=== PATIENT | female | born 1975 | race African-American/Black ===

== ENCOUNTER 2025-08-18 13:19 | Outpatient (REF) | payer BC, SELFPAY ==
[2025-08-18 16:07] LABS: Appearance Urine Clear; Glucose Urine UA Negative (Negative); PH 5.5 (5.0-9.0); Specific Gravity - Urine 1.020 (1.005-1.025); UMIC TRIGGER UACC YES
[2025-08-18 16:12] LABS: MANUAL DIFF FLAG NO
[2025-08-18 16:17] LABS: UACC Culture Trigger YES
[2025-08-18 16:17] LABS: Hematocrit 37.6 % (37.0-47.0); Hemoglobin 12.2 g/dl (12.0-16.0); Imm Gran Abs Auto 0.02 X10*3/uL (0.00-0.03); Imm Gran Pct Auto 0.3 % (0.0-0.4); Lymphocytes Absolute Auto 2.5 X10*3/uL (1.2-4.9); Mean Corpuscular HGB Conc 32.4 g/dl (31.0-35.0); Mean Corpuscular Hemoglobin 29.5 pg (27.0-33.0); Mean Corpuscular Volume 90.8 fL (80.0-98.0); NRBC Abs Auto 0.000 X10*3/uL (0.0-0.012); NRBC Pct Auto 0.0 /100WBC (0.0-0.2); Platelet Count 319 X10*3/uL (160-400); Red Blood Count 4.14 X10*6/uL (4.20-5.50); White Blood Count 6.3 X10*3/uL (4.8-10.8)
[2025-08-18 16:58] LABS: Alanine Aminotransferase 63 U/L (0-31); Albumin Level 4.3 g/dL (3.5-5.0); Alkaline Phosphatase 75 U/L (39-117); Anion Gap 10 (12-20); Aspartate Amino Transferase 48 U/L (5-31); Blood Urea Nitrogen 8 mg/dL (9-16); Calcium 9.5 mg/dL (8.4-10.2); Carbon Dioxide 29 mmol/L (22-29); Chloride 106 mmol/L (96-108); Cholesterol 191 mg/dL (<200); Estimated Glomerular Filt Rate > 60; HDL Cholesterol 34 mg/dL (>40); Iron 102 mcg/dL (30-160); Magnesium 1.8 mg/dL (1.6-2.6); Percent Iron Saturation 33 % (15-50); Potassium 3.9 mmol/L (3.3-5.1); Sodium 141 mmol/L (135-145); Total Iron Binding Capacity 310 mcg/dL (228-428); Total Protein 7.7 g/dL (6.5-8.0); Triglycerides 263 mg/dL (<150); Unsaturated Iron Binding 208 ug/dL
[2025-08-18 16:59] LABS: Folate 10.1 ng/mL (> or = 4.0); Vitamin B12 593 pg/mL (200-900)
[2025-08-18 17:07] LABS: Ferritin 37 ng/mL (10-250)
== END 2025-08-18 13:20 | disposition home or self-care (01) ==
LOC: HO.HMGCLDS 13:19
PROVIDERS: PCP Physician Assistant Medical; Visit Provider Physician Assistant Medical
DX: Z00.00 Encounter for general adult medical examination without abnormal findings (principal); Z28.82 Immunization not carried out because of caregiver refusal; Z12.11 Encounter for screening for malignant neoplasm of colon; R53.83 Other fatigue; R63.5 Abnormal weight gain; K13.0 Diseases of lips; D64.9 Anemia, unspecified; N95.1 Menopausal and female climacteric states; B00.1 Herpesviral vesicular dermatitis; Z68.30 Body mass index [BMI] 30.0-30.9, adult
CPT/HCPCS: 36415; 80053; 80061; 80076; 81001; 82248; 82306; 82607; 82728; 82746; 83036; 83540; 83735; 84443; 85025; 86140; 86695; 86696; 87086; 96127

== ENCOUNTER 2025-08-18 13:19 | Outpatient (AMB) | payer BC, SELFPAY ==
--- NOTE | 2025-08-18 13:24 | MHC.PC.OV ---
Vital Signs 08/18/25 13:30 Height 5 ft 4.96 in Weight 181 lb BMI 30.2 BP 135/80 Blood Pressure Location Rt brachial Position Sitting Respiration 20 Pulse 76 Pulse Source Pulse Oximeter Temp 97.7 F Temp Source Temporal Artery Scan Pulse Oximetry (%) 96 Oxygen Delivery Method Room Air Intake Visit Reasons: establish care Accompanied by: Self / Same As Patient Allergies No Known Allergies Allergy (Verified 08/18/25 14:51) Medication List - Last Reconciled 08/18/25 by Zeny Hudson PA-C cholecalciferol (vitamin D3) (Vitamin D3) 25 mcg PO DAILY escitalopram oxalate 20 mg PO DAILY fexofenadine (Yamilex Allergy) 180 mg PO DAILY multivitamin with folic acid 400 mcg (Daily-Patsy (with folic acid)) 1 tab PO DAILY mupirocin 2% 1 appl topical QID valacyclovir (Valtrex) 1,000 mg PO DAILY 7 days Tobacco use date assessed: 08/18/25 Dental Screening Dental Screen Date: 08/18/25 Did you have a dental visit in the last 12 months?: Yes Was dental information given to patient?: Patient has dentist HPI establish care HPI Details The patient is a 50-year-old female presenting for a annual physical exam and evaluation of fatigue and weight gain. The patient reports persistent fatigue despite working at [employer], which involves physical labor such as lifting. She has experienced weight gain and expresses concern about her energy levels. 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 Recently, she developed a lesion on her face after squeezing a pimple, which was initially suspected to be a cold sore but is now considered a possible skin infection. She reports menopausal symptoms, including mood changes and temperature fluctuations. The patient is concerned about her appearance and weight, noting a significant change from her past physique. Preventative care measures discussed include blood work to assess various health parameters, a mammogram referral, and colon cancer screening with oguard. Social History - Employment: Works at [employer], involving physical labor such as lifting - Substance Use: Sober for two and a half years - Family Status: for 26 years [facility] Medical History (Updated 08/18/25 @ 14:55 by Zeny Hudson PA-C) Colon cancer screening Preventative health care Menopausal symptoms Infection of lip HSV infection Weight gain Fatigue Annual physical exam Cold sore Family History Mother Stroke Father Kidney malignancy HTN (hypertension) Social History Housing: Apartment Patient Tobacco Use Status: Current everyday Tobacco user e-Cigarette/Vaping Use: Currently Using service: No Current occupational status: employed Cognitive needs: No Hearing needs: No Vision needs: No Questionnaire PHQ-9 Over the last 2 weeks, how often have you been bothered by any of the following problems? 1. Little interest or pleasure in doing things: not at all 2. Feeling down, depressed, or hopeless: not at all 3. Trouble falling or staying asleep, or sleeping too much: not at all 4. Feeling tired or having little energy: not at all 5. Poor appetite or overeating: not at all 6. Feeling bad about yourself - or that you are a failure or have let yourself or your family down: not at all 7. Trouble concentrating on things, such as reading the newspaper or watching television: not at all 8. Moving or speaking so slowly that other people could have noticed. Or the opposite - being so fidgety or restless that you have been moving around a lot more than usual: not at all 9. Thoughts that you would be better off or of hurting yourself in some way: not at all Total score: 0 Depression Screening Interpretation: Negative Depression Screening Done: Yes 60238 - PHQ-9 Billing: Yes Source: Developed by Drs. Zac Coyle, Chiquita Spaulding, Gumaro Reid and colleagues, with an educational amanda from [employer] Thrive Questionnaire Date Thrive assessed: 08/18/25 I am a: Patient What is your living situation today?: I have a steady place to live Within the past 12 months, did the food you bought not last and you didn't have the money to get more?: Never true Within the past 12 months, did you worry whether your food would run out before you got money to buy more?: Never true Do you have trouble paying for medicines?: No Do you have trouble getting transportation to medical appointments?: No Do you have trouble paying your heating and electricity bill?: No Do you have trouble taking care of your child, family member or friend?: No Do you have trouble with day-to-day activities such as bathing, preparing meals, shopping, managing finances, etc.?: No Are you currently unemployed and looking for a job?: No Are you interested in more education?: No Please select the resources that you would like help with: None THRIVE Score: 0 AUDIT C Alcohol Use Questionnaire (AUDIT-C) 1. How often do you have a drink containing alcohol?: Never Total Score: 0 Score Reviewed/Action Taken: No PAWEL-7 AMB Questionnaire PAWEL-7 Date PAWEL - 7 assessed: 08/18/25 Feeling nervous, anxious, or on edge: 0 = Not at all Not being able to stop or control worryin = Not at all Worrying too much about different things: 0 = Not at all Trouble relaxin = Not at all Being so restless that it is hard to sit still: 0 = Not at all Becoming easily annoyed or irritable: 0 = Not at all Feeling afraid as if something awful might happen: 0 = Not at all Total PAWEL-7 score (0-4 normal; 5-9 mild; 10-14 moderate; 15-21 severe): 0 Source: Developed by Drs. Zac Coyle, Chiquita Spaulding, Gumaro Reid and colleagues, with an educational amanda from [employer] PAWEL-7 Assessment Billing PAWEL-7 Assessment Tool: PAWEL-7 Assessment 55887 Review of Systems Const Details: - General: Reports fatigue and weight gain - Dermatological: Reports a facial lesion initially suspected as a cold sore - Neurological: Denies history of cold sores - Endocrine: Reports menopausal symptoms such as mood changes and temperature fluctuations All systems reviewed & are unremarkable except as noted in HPI and below Physical exam (Primary Care) Vital Signs: Last Vital Signs Temp 97.7 F 08/18/25 13:30 Pulse 76 08/18/25 13:30 Resp 20 08/18/25 13:30 BP 135/80 08/18/25 13:30 Pulse Ox 96 08/18/25 13:30 Oxygen Delivery Method Room Air 08/18/25 13:30 Care Plan Goal for BP management: <140/90 at Goal BMI result Body Mass Index 30.2 BMI Assessment/Plan discussion: High BMI High, discussed plan: lifestyle, weight reduction, dietary, physical activity, alcohol moderation and other Tobacco/Smoking Status: Tobacco use Status Tobacco use date assessed 08/18/25 08/18/25 13:30 Patient Tobacco Use Status Current everyday Tobacco 08/18/25 13:43 e-Cigarette/Vaping Use Currently Using 08/18/25 13:43 PHQ-9: PHQ-9 Score PHQ-9: Total score 0 08/18/25 13:47 Depression Screening Interpretation: Negative Thrive Assessment: Date of Thrive Assessment Date Thrive assessed 08/18/25 08/18/25 13:30 Const Other: Appearance: Alert. Oriented X3. No acute distress. Head: Normal external exam. Normocephalic. Atraumatic. Eyes: Pupils are equal, round, and reactive to light. Extraocular movements intact. Conjunctiva and sclera normal. Eyelids normal. Ears: External auditory canal normal. Tympanic membranes normal. Fluid noted in ears, possibly due to chronic sinus issues. Throat: Pharynx normal. Uvula midline. Moist mucous membranes. To the patient's lips she has a wound to the right lower lip possibly herpes versus impetigo. Neck: Normal inspection. Neck supple. Full range of motion. No adenopathy. Thyroid Normal. No meningeal signs. No neck mass noted. Cardiovascular: Normal heart rate and rhythm. Heart sound normal. No murmurs noted. Pulses normal throughout. Respiratory: No respiratory distress. Painless inspiration. Breath sounds normal. No wheezes/rales/rhonchi noted. Chest nontender. No accessory muscle usage noted or decreased air movement noted. Abdomen: Soft and nontender. Bowel sounds normal in all 4 quadrants. No distention noted. No organomegaly noted. No visible injury noted. Back: No costovertebral angle tenderness. Full range of motion noted. Skin: Skin warm and dry. Normal skin color. Normal skin turgor. No rashes/lesions/lacerations noted. Noted a possible skin infection on the face, treated with topical ointment. Extremities: No lower extremity edema. Extremities exhibit normal range of motion. Extremities nontender. Neuro: Oriented X 3. No motor deficit. No sensory deficit. Reflexes normal. Office Procedures Flu Questionnaire Does the patient have a severe egg allergy?: No Does the patient have severe life threatening allergies?: No Does the patient have a fever or illness today?: No Has the patient ever had Guillain-[place] Syndrome?: No Has the patient ever had any past reaction to a flu shot?: No Immunizations Fluarix [id number] (PF) 45 mcg (15 mcg x 3)/0.5 mL IM syringe Performing Provider: Zeny Hudson PA-C [facility] [place] [facility] Documented (not given) by: Trinity Seals CMA on 08/18/25 13:48 Reason Not Given: Patient Refused Coding Level of Care Code New Pt Level 4 (13670) New Pt Prev Care 40-64y(02910) Diagnoses Annual physical exam Z00.00 Fatigue R53.83 Weight gain R63.5 HSV infection B00.9 Infection of lip K13.0 Menopausal symptoms N95.1 Preventative health care Z00.00 Colon cancer screening Z12.11 Additional Codes PHQ-9 - 77147 - PHQ-9 Billing: Yes ([id number]) PAWEL-7 Assessment Billing - PAWEL-7 Assessment Tool: PAWEL-7 Assessment 34964 ([id number]) Time Spent (min) 50 Assessment & Plan Assessment & Plan (1) Annual physical exam: Code(s): Z00.00 - Encounter for general adult medical examination without abnormal findings Category: Medical (2) Fatigue: Code(s): R53.83 - Other fatigue Category: Medical Plan: The plan includes ordering comprehensive blood work to evaluate potential causes of fatigue, including thyroid function, vitamin levels, and complete blood count. (3) Weight gain: Code(s): R63.5 - Abnormal weight gain Category: Medical Plan: The patient is advised to complete blood work to assess for metabolic or endocrine causes of weight gain, including thyroid function and cholesterol levels. (4) HSV infection: Code(s): B00.9 - Herpesviral infection, unspecified Category: Medical Plan: The patient is prescribed Valtrex for potential HSV-2 management, with instructions for daily use for seven days and three refills provided. (5) Infection of lip: Code(s): K13.0 - Diseases of lips Category: Medical Plan: A topical antibiotic is prescribed to treat the suspected skin infection, and an antiviral is provided as a precautionary measure. (6) Menopausal symptoms: Code(s): N95.1 - Menopausal and female climacteric states Category: Medical Plan: The patient is advised on lifestyle modifications to manage menopausal symptoms, including monitoring mood changes and temperature fluctuations. (7) Preventative health care: Code(s): Z00.00 - Encounter for general adult medical examination without abnormal findings Category: Medical Plan: Preventative measures include blood work, mammogram referral, and colon cancer screening with Cologuard. (8) Colon cancer screening: Code(s): Z12.11 - Encounter for screening for malignant neoplasm of colon Category: Medical Plan: Preventative measures include blood work, mammogram referral, and colon cancer screening with Cologuard. Plan Plan Patient was informed and verbally consented to the use of an ambient scribe for clinic note documentation during this visit. 1. Fatigue The plan includes ordering comprehensive blood work to evaluate potential causes of fatigue, including thyroid function, vitamin levels, and complete blood count. 2. Weight Gain The patient is advised to complete blood work to assess for metabolic or endocrine causes of weight gain, including thyroid function and cholesterol levels. 3. Possible Skin Infection A topical antibiotic is prescribed to treat the suspected skin infection, and an antiviral is provided as a precautionary measure. 4. Herpes Simplex Virus Type 2 (Hsv-2) The patient is prescribed Valtrex for potential HSV-2 management, with instructions for daily use for seven days and three refills provided. 5. Menopausal Symptoms The patient is advised on lifestyle modifications to manage menopausal symptoms, including monitoring mood changes and temperature fluctuations. 6. Preventative Care Preventative measures include blood work, mammogram referral, and colon cancer screening with Cologuard. During the visit, I discussed the importance of completing the recommended blood work to evaluate the patient's fatigue and weight gain. We also talked about the potential skin infection and the use of a topical antibiotic and antiviral medication as a precaution. I explained the management plan for HSV-2, including the prescription of Valtrex and the provision of refills. Preventative care measures, such as a mammogram referral and colon cancer screening with Cologuard, were also discussed. Orders: Orders C Reactive Protein Today Z00.00 - Encounter for general adult medical examination without abnormal findings Complete Blood Count Auto Diff Today Z00.00 - Encounter for general adult medical examination without abnormal findings Hemoglobin A1c Today Z00.00 - Encounter for general adult medical examination without abnormal findings Vitamin D 25-OH Total Today Z00.00 - Encounter for general adult medical examination without abnormal findings UA CC w/rflx Micro + Cult Today Z00.00 - Encounter for general adult medical examination without abnormal findings Ferritin Today D64.9 - Anemia, unspecified Influenza [id number] Immunization Today Z23 - Encounter for immunization Comprehensive [place]. Panel Fast Today Z00.00 - Encounter for general adult medical examination without abnormal findings Lipid Panel Today Z00.00 - Encounter for general adult medical examination without abnormal findings Liver Panel Today Z00.00 - Encounter for general adult medical examination without abnormal findings Magnesium Today Z00.00 - Encounter for general adult medical examination without abnormal findings Vitamin B12 and Folate Today Z00.00 - Encounter for general adult medical examination without abnormal findings TSH reflex Free T4 Today Z00.00 - Encounter for general adult medical examination without abnormal findings IRON PROFILE Today D64.9 - Anemia, unspecified Herpes Simplex Virus Ab IgG Today B00.1 - Herpesviral vesicular dermatitis MM screening mammo BI Today Z12.31 - Encounter for screening mammogram for malignant neoplasm of breast Referrals Cologuard Test Z12.11 - Encounter for screening for malignant neoplasm of colon, Z12.12 - Encounter for screening for malignant neoplasm of rectum Medications: New mupirocin 2% 1 appl topical QID 22 grams 3RF fexofenadine (Yamilex Allergy) 180 mg PO DAILY 90 tabs 3RF multivitamin with folic acid 400 mcg (Daily-Patsy (with folic acid)) 1 tab PO DAILY 90 tabs 3RF valacyclovir (Valtrex) 1,000 mg PO DAILY 7 tabs 3RF 7 days cholecalciferol (vitamin D3) (Vitamin D3) 25 mcg PO DAILY 90 caps 3RF escitalopram oxalate 20 mg PO DAILY 90 tabs 3RF Patient Instructions: - Complete the blood work as soon as possible, ensuring to fast for 10-12 hours prior. - Apply the prescribed topical antibiotic to the facial lesion as directed. - Take Valtrex once daily for seven days, with three refills available if needed. - Monitor for any changes in menopausal symptoms and report significant changes. - Schedule and complete the mammogram and Cologuard screening as referred.
[2025-08-18 13:30] VITALS: BP 135/80; PULSE 76; RESP 20; TEMP 36.5; O2SAT 96; BMI 30.2
--- OUTSIDE RECORDS SUMMARY | 2025-08-18 14:31 | XMS_ITS | Clinical Summary ---
Author Organization [facility] Address [address] [place] [address] Care Team Providers Care Consumer Affairs Manager Name Role Phone Akosua Palomo HERMINIO Primary Care Provider [phone] Source Comments PLEASE NOTE, if this patient is a minor, it may be UNLAWFUL to discuss sensitive information that is contained in these records (such as FAMILY PLANNING, MENTAL HEALTH or SUBSTANCE ABUSE) with the minor patient's parent or other person without the patient's specific authorization.[facility] Allergies No known active allergies Medications calcium carbonate-vitami n D3 500 mg-10 mcg (400 unit) tabletIndication s:Vitamin D deficiency Take 1 Tablet by mouth 3 (three) times daily with meals 2 Active buPROPion HCL (WELLBUTRIN XL) 150 mg 24 hr tabletIndication s:Major depressive disorder in partial remission, unspecified whether recurrent,Tobacc o use disorder Take 1 Tablet by mouth every morning 90 Tablet 2 Active escitalopram oxalate (LEXAPRO) 20 mg tabletIndication s:Major depressive disorder in partial remission, unspecified whether recurrent Take 1 Tablet by mouth once daily 90 Tablet 2 Active naltrexone (DEPADE) 50 mg tabletIndication s:alcohol use disorder Take 1 Tablet by mouth once daily Indications: alcoholism 90 Tablet 2 Active traZODone (DESYREL) 100 mg tabletIndication s:insomnia associated with depression Take 1 Tablet by mouth nightly at bedtime Indications: insomnia associated with depression 90 Tablet 2 Active hydrOXYzine pamoate (VISTARIL) 25 mg capsuleIndicatio ns:Anxiety,PTSD (post-traumatic stress disorder) Take 1 Capsule by mouth 2 (two) times daily 180 Capsule 2 Active cholecalciferol, vitamin D3, (VITAMIN D3) 1,250 mcg (50,000 unit) capsuleIndicatio ns:Vitamin D deficiency Take 1 Capsule by mouth once a week 12 Capsule 2 Active Active Problems Problem Noted Date Diagnosed Date Skin lesion 04/26/2022 Vitamin D deficiency 04/26/2022 Mild episode of recurrent major depressive disor amrik 04/17/2022 Financial difficulties 12/28/2021 Suicide risk 12/14/2021 Severe episode of recurrent major depressive disorder, without psychotic features 12/14/2021 Moderate episode of recurrent major depressive d isorder 12/14/2021 Generalized anxiety disorder 12/14/2021 Alcohol use disorder, severe, dependence 022 Marijuana use 12/14/2021 Major depressive disorder in partial remission 0 11/20/2021 Anxiety 11/20/2021 History of drug abuse 11/20/2021 Post traumatic stress disorder 11/20/2021 Tobacco abuse 03/11/2015 History of abnormal cervical Pap smear 5 Resolved Problems Problem Noted Date Diagnosed Date Resolved Date Periapical abscess 03/11/2015 2 Immunizations Immunization Administration Dates Next Due Moderna COVID-19 Vaccine, re d cap blue label, 12+ Primary Series 12/28/2021 Family History Medical History Relation Name Comments Hypertension Father Diabetes Maternal Aunt Diabetes Maternal Grandfather Stroke Mother Bipolar disorder Other sister Diabetes Paternal Grandmother Heart Problems Sister Heart attack Sister Mental illness Sister bipoplar diso rder Alcohol/Drug Abuse Son Relation Name Status Comments Father Alive Heart surgery 2 020. Degenerative bone disease. Maternal Aunt Maternal Grandfather Mother Alive Other sister Other bipolar disorde r Paternal Aunt Alive Paternal Grandmother Sister (Age 38) heart kay ck Son Alive Social History Tobacco Use Types Packs/Day Years Used Date Smoking Tobacco: Every Day Cigarettes 0.3 33.4 Started: 03/11/1992 Smokeless Tobacco: Never Tobacco Cessation:Ready to Q uit: Yes; Counseling Given: Yes Comments:10/02/2021: States she has cut down on smokng. Wants to quit but is not ready to quit at this time. Alcohol Use Standard Drinks/Week Comments Not Currently 48 (1 standard drink = 0.6 oz pu re alcohol) Social Connections Answer Date Recorded Connectedness 0 07/06/2022 Financial Resource Strain Answer Date R ecorded Financial Resource Strain 0 2021 Stress Answer Date Recorded Stress 0 07/06/2022 Physical Activity Answer Date Recorded Physical Activity 0 07/06/2022 Food Insecurity Answer Date Recorded Food 0 07/06/2022 Transportation Needs Answer Date Record ed Transportation 0 07/06/2022 Housing Stability Answer Date Recorded Housing 0 07/06/2022 Safety and Environment Answer Date Murtaza rded Safety 0 07/06/2022 Utilities Answer Date Recorded Utilities 0 07/06/2022 Employment Answer Date Recorded Stress 0 07/06/2022 Comments No Sex and Gender Information Value Date Recorded Sex Assigned at Female 10/02/2021 10:29 AM PST Legal Sex Female 8:21 AM PDT Gender Identity Female 10/02/2021 10:29 AM PST Sexual Orientation Straight 10/02/2021 10 :29 AM PST Occupation Industry Job Start Date Job End Date unemployed Not on file Not on file Not on file Last Filed Vital Signs Vital Sign Reading Time Taken Comments Blood Pressure 113/71 05/07/2022 11:25 AM EDT Pulse 85 05/07/2022 11:25 AM EDT Temperature 37.4 C (99.4 F) 05/07/2022 11:25 AM EDT Respiratory Rate 22 05/07/2022 11:2 5 AM EDT Oxygen Saturation 100% 05/07/2022 11: 25 AM EDT Inhaled Oxygen Concentration - - Weight 67.9 kg (149 lb 11.2 oz) 022 11:25 AM EDT Height 162.6 cm (5' 4 ) 05/07/2022 11:2 5 AM EDT Body Mass Index 25.7 05/07/2022 11:25 AM EDT Plan of Treatment Health Maintenance Due Date Last Done Comments HPV Screening 1977 Pap + HPV 1977 Relationship Safety Screening/Counseling 1992 Imm-DTaP/Tdap/Td (1 - Tdap) 1996 Imm-Hepatitis A (1 of 2 - Ri sk 2-dose series) 1996 Imm-Hepatitis B (1 of 3 - 19 + 3-dose series) 1996 Imm-Pneumococcal (1 of 2 - PCV) 1996 Cervical Cancer Screening 1998 Pap Smear 1998 Breast Cancer Screening (Mammogram) 2017 CT Colonography 2022 Colonoscopy 2022 Colorectal Cancer Screening 2022 FIT/gFOBT 2022 Fecal DNA 2022 Flexible Sigmoidoscopy 2022 Depression Monitoring 08/07/2022 05/07/2022 , 04/26/2022, 04/17/2022, Additional history exists Syphilis Screening 01/25/2023 01/25/2022, 10/02/2021 Tobacco Screening 02/23/2023 02/23/2022, , 12/28/2021 Tobacco Cessation Counseling (#1) 04/26/2023 02/23/2022, 01/25/2022, 12/28/2021 Anxiety Screening 05/07/2023 05/07/2022 Hypertension Screening (#1) 05/07/2023 LTBI Screening (#1) 05/07/2023 05/07/2022 Diabetes Screening 10/09/2024 10/09/2021, 10/09/2021 Alcohol and Drug Screen 11/18/2024 04/26/20, 10/02/2021, 10/02/2021 Plz-ETAPP-87 ( season) 2025 12/28/2021, 07/11/2021, 06/13/2021 Imm-Influenza (#1) 2025 Lipid Screening 10/09/2026 10/09/2021 HIV Screening Completed 10/02/2021 Hepatitis C Screening Completed 10/09/2021 Cervical Ablation/Cold-Knife Conization Discontinued Cervical Cryotherapy Discontinued Colposcopy Discontinued Endometrial Biopsy Discontinued Excision/Leep Discontinued HPV Genotyping Discontinued Vaginal Pap Discontinued Vulvoscopy Discontinued Procedures Procedure Name Priority Date/Time Associated Diagnosis Comments QUANTIFERON-TB GOLD PLUS Routine 05/07/2022 11:56 AM EDT Alcohol use disorder, severe, dependence (HCC-CMS) RPR W/RFLX TITER+FTA+CONF Routine 01/25/2022 2:10 PM EST Routine screening for STI (sexually transmitted infection) HEPATITIS C AB W/RFLX HCV RNA, QT, RT PCR Routine 10/09/2021 11:27 AM EST Screening for endocrine, metabolic and immunity disorder HEMOGLOBIN GLYCOSYLATED A1C Routine 10/09/2021 11:27 AM EST FH: type 2 diabetes LIPID PANEL Routine 10/09/2021 11:27 AM EST Screening for endocrine, metabolic and immunity disorder HIV 1/2 AG & AB W/RFLX (4TH GEN) Routine 10/02/2021 2:04 PM EST Screening examination for STD (sexually transmitted disease) from Last 3 Months or Most Recently Relevant to Health Maintenance Results * QUANTIFERON-TB GOLD PLUS (05/07/2022 11:56 AM EDT) [facility] QUANTIFERON NEGATIVE NEGATIVE [facility] Comment: Negative test result. M. tuberculosis complex infection unlikely. NIL 0.05 IU/mL [facility] [employer] MITOGEN-NIL >10.00 IU/mL [employer] TB1-NIL <0.00 IU/mL [facility] [employer] TB2-NIL 0.01 IU/mL [facility] Comment: The Nil tube value reflects the background interferon gamma immune response of the patient's blood sample. This value has been subtracted from the patient's displayed TB and Mitogen results. Lower than expected results with the Mitogen tube prevent false-negative Quantiferon readings by detecting a patient with a potential immune suppressive condition and/or suboptimal pre-analytical specimen handling. The TB1 Antigen tube is coated with the M. tuberculosis-specific antigens designed to elicit responses from TB antigen primed CD4+ helper T-lymphocytes. The TB2 Antigen tube is coated with the M. tuberculosis-specific antigens designed to elicit responses from TB antigen primed CD4+ helper and CD8+ cytotoxic T-lymphocytes. For additional information, please refer to https://education.Vysr/faq/FHP136 (This link is being provided for informational/ educational purposes only.) Blood Blood / Unknown 05/07/2022 1 1:56 AM EDT 05/07/2022 11:00 PM EDT Mookie Strong MD LAB - BLOOD DRAW Final Result Performing Organization Address City/[facility]/ZIP Co de Phone Number [facility] [address], [address] [place] [address], [facility] [address] [place] [address] * RPR (DX) W/REFL TITER AND CONFIRMATORY TESTING ([id number]) (01/25/2022 2:10 PM EST) RPR (DX) W/REFL TITER AND CONFIRMATORY TESTING NON-REACT TAE NON-REACT TAE [facility] Blood Blood / Unknown 01/25/2022 2 :10 PM EST 01/25/2022 10:51 PM EST Ariela Vides PMHNP LAB - BLOOD DRAW Final Result Performing Organization Address [facility]/ZIP Co de Phone Number [facility] [address] [place] [address] [facility] [address] [place] [address] * HEPATITIS C AB W/RFLX HCV RNA, QT, RT PCR ([facility] [id number]) (10/09/2021 11:27 AM EST) HEPATITIS C ANTIBODY NON-REACTI VE NON-REACT TAE [facility] SIGNAL TO CUT-OFF 0.01 <1.00 [facility] Comment: HCV antibody was non-reactive. There is no laboratory evidence of HCV infection. In most cases, no further action is required. However, if recent HCV exposure is suspected, a test for HCV RNA (test code 48927) is suggested. For additional information please refer to http://education.Vysr/faq/WUX62p2 (This link is being provided for informational/ educational purposes only.) Blood Blood / Unknown 10/09/2021 1 1:27 AM EST 10/09/2021 10:55 PM EST Akosua DURHAM [facility] - BLOOD DRAW Final Resul t Performing Organization Address [facility] de Phone Number [employer] [address] [address] [facility] [address] * HEMOGLOBIN A1c ([id number]) (10/09/2021 11:27 AM EST) HEMOGLOBIN A1C 4.8 <5.7 % of total Hgb [facility] Comment: For the purpose of screening for the presence of diabetes: <5.7% Consistent with the absence of diabetes 5.7-6.4% Consistent with increased risk for diabetes (prediabetes) > or =6.5% Consistent with diabetes This assay result is consistent with a decreased risk of diabetes. Currently, no consensus exists regarding use of hemoglobin A1c for diagnosis of diabetes in children. According to [place] Diabetes [employer] (ADA) guidelines, hemoglobin A1c <7.0% represents optimal control in non- diabetic patients. Different metrics may apply to specific patient populations. Standards of Medical Care in Diabetes(ADA). Blood Blood / Unknown 10/09/2021 1 1:27 AM EST 10/09/2021 10:55 PM EST Akosua [facility] - BLOOD DRAW Final Resul t Performing Organization Address [facility] de Phone Number [employer] [address] [address] [facility] [address] * (ABNORMAL) LIPID PANEL (10/09/2021 11:27 AM EST) CHOLESTEROL, TOTAL 135 <200 mg/dL [facility] HDL CHOLESTEROL 43(L) > OR = 50 mg/dL [facility] TRIGLYCERIDES 107 <150 mg/dL [facility] LDL-CHOLESTEROL 73 99 mg/dL (calc) [facility] Comment: Reference range: <100 Desirable range <100 mg/dL for primary prevention; <70 mg/dL for patients with CHD or diabetic patients with > or = 2 CHD risk factors. LDL-C is now calculated using the [place] calculation, which is a validated novel method providing better accuracy than the Friedewald equation in the estimation of LDL-C. Param ANGEL et al. JATIN. 2013;310(24): 3321-8989 (http://education.[employer]/faq/PKI217) CHOL/HDLC RATIO 3.1 <5.0 (calc) [facility] NON-HDL CHOLESTEROL 92 <130 mg/dL (calc) [facility] Comment: For patients with diabetes plus 1 major ASCVD risk factor, treating to a non-HDL-C goal of <100 mg/dL (LDL-C of <70 mg/dL) is considered a therapeutic option. Blood Blood / Unknown 10/09/2021 1 1:27 AM EST 10/09/2021 10:55 PM EST us Akosua Palomo [facility] - BLOOD DRAW Final Resul t [employer] [facility] [address] [place] [address] [facility] [address] [place] [address] * HIV 1/2 AG & AB W/RFLX (4TH GEN) ([facility] [id number]) (10/02/2021 2:04 PM EST) HIV AG/AB, 4TH GEN NON-REACT TAE NON-REACT TAE [facility] Comment: HIV-1 antigen and HIV-1/HIV-2 antibodies were not detected. There is no laboratory evidence of HIV infection. PLEASE NOTE: This information has been disclosed to you from records whose confidentiality may be protected by state law. If your state requires such protection, then the state law prohibits you from making any further disclosure of the information without the specific written consent of the person to whom it pertains, or as otherwise permitted by law. A general authorization for the release of medical or other information is NOT sufficient for this purpose. For additional information please refer to http://education.[employer].Tellja/faq/UOG965 (This link is being provided for informational/ educational purposes only.) The performance of this assay has not been clinically validated in patients less than 2 years old. Blood Blood / Unknown 10/02/2021 2 :04 PM EST 10/02/2021 11:57 PM EST us Akosua [facility] - BLOOD DRAW Final Resul t [employer] [facility] [address] [place] [address] [facility] [address] [place] [address] from Last 3 Months or Most Recently Relevant to Health Maintenance Insurance [facility] [employer] Care Teams Consumer Affairs Manager Relationship Specialty Start Date End Date Akosua Palomo FNP [address] [place] [address] [phone] PCP - General Family Medicine, RECHECKER 03/11/15
--- OUTSIDE RECORDS SUMMARY | 2025-08-18 14:31 | XMS_ITS | Clinical Summary ---
Author Organization [facility] Address [address] [place] [address] Phone Care Team Providers Care Community Administrator Name Role Phone Physician, Pcp Unknown Primary Care Provider Eva vailable Allergies No known active allergies Medications No known medications Encounters Date Type Department Care Team Description 07/04/2025 11:57 AM EDT - 07/04/2025 5:36 PM EDT Emergency [facility] Emergency [address] [place] [phone] Cam Saleem MD Uterine leiomyoma, unspecified location (Primary Dx); DUB (dysfunctional uterine bleeding); Other fatigue Discharge Disposition: Home or Self Care from Last 3 Months Surgical History Surgery Date Site/Laterality Comments TUBAL LIGATION Family History Medical History Relation Name Comments Coronary artery disease Sister Heart attack Sister Relation Name Status Comments Sister Social History Tobacco Use Types Packs/Day Years Used Date Smoking Tobacco: Every Day Cigarettes Smokeless Tobacco: Current Tobacco Cessation:Ready to Q uit: Not Asked; Counseling Given: Not Answered Comments Unknown Sex and Gender Information Value Date Recorded Sex Assigned at Not on file Legal Sex Female 8:55 PM EST Gender Identity Not on file Sexual Orientation Not on file Obstetrics History Last Filed Vital Signs Vital Sign Reading Time Taken Comments Blood Pressure 96/65 07/04/2025 3:08 PM EDT Pulse 80 07/04/2025 3:08 PM EDT Temperature 37.2 C (99 F) 07/04/2025 3:08 PM EDT Respiratory Rate 18 07/04/2025 3:08 PM EDT Oxygen Saturation 100% 07/04/2025 3:08 PM EDT Inhaled Oxygen Concentration - - Weight 82.6 kg (182 lb) 07/04/2025 11:00 AM EDT Height 162.6 cm (5' 4 ) 07/04/2025 11:00 AM EDT Body Mass Index 31.24 07/04/2025 11:00 AM EDT Plan of Treatment Upcoming Encounters Date Type Department Care Team (Latest Contact Info) Description 09/30/2025 11:30 AM EST Pre-Admission Testing [facility] Pre-Admission Testing [address] [place] [phone] 10/05/2025 7:30 AM EST Hospital Encounter [facility] Main OR [address] [place] [phone] Tyron Blum MD [address] [phone] 10/05/2025 7:30 AM EST - 10/05/2025 8:45 AM EST Surgery [facility] Main OR [address] [place] [phone] Tyron Blum MD [address] [phone] FRACTIONAL D+C PAP SMEAR HYSTEROSCOPY [96553 (CPT )] Scheduled Procedures Name Priority Associated Diagnoses Date/Ti me HYSTEROSCOPY Irregular menstruation, unspecified 10/05/2025 7:30 AM EST Health Maintenance Due Date Last Done Comments Colorectal Cancer Screening: Colonoscopy 1975 DTaP,Tdap,and Td Vaccines (1 - Tdap) 1996 Hepatitis A Vaccines (1 of 2 - Risk 2-dose series) 1996 Hepatitis B Vaccines (1 of 3 - 19+ 3-dose series) 1996 Pneumococcal Vaccine: Pediatrics (0 to 5 Years) and At-Risk Patients (6 to 49 Years) (1 of 2 - PCV) 1996 Cervical Cancer Screening: P ap Smear 1998 HIV Screening 12/13/2023 Social Influencers of Health Screening 12/13/2023 Depression Screening 11/18/2024 Breast Cancer Screening 04/30/2025 04/30/2023 COVID-19 Vaccine (4 - 2024-2 6 season) 2025 12/14/2022, 12/28/2021, 05/11/2021 Influenza Vaccine (#1) 2025 Cholesterol Screening (Lipid Panel) 10/09/2026 10/09/2021, 10/09/2021 RSV Immunization Adult Patients (1 - 1-dose 75+ series) 2052 Hepatitis C Screening Completed 10/09/2021 HIB Vaccines Aged Out No longer eligi ble based on patient's age to complete this topic HPV Vaccines Aged Out No longer eligi ble based on patient's age to complete this topic IPV Vaccines Aged Out No longer eligi ble based on patient's age to complete this topic MMR Vaccines Aged Out No longer eligi ble based on patient's age to complete this topic Meningococcal ACWY Vaccine Aged Out N o longer eligible based on patient's age to complete this topic Meningococcal B Vaccine Aged Out No l onger eligible based on patient's age to complete this topic RSV Immunization Patients Under 20 months Aged Out No longer eligible b ased on patient's age to complete this topic Varicella Vaccines Aged Out No longer eligible based on patient's age to complete this topic Goals Goal Patient Goal Type Associated Problems Recent Progress Patient-Stated? Author Autogenerat ed Goal Care Plan Autogenerated Problem No Lavinia Livingston Procedures Procedure Name Priority Date/Time Associated Diagnosis Comments ECG ANNOTATED 07/05/2025 RHYTHM ECG, REPORT Routine 07/04/2025 4: 48 PM EDT TROPONIN I HIGH SENSITIVITY STAT 07/04/2025 4:16 PM EDT ECG 12-LEAD STAT 07/04/2025 4:15 PM EDT US PELVIS NON OB COMPLETE W TRANSVAGINAL STAT 07/04/2025 3:02 PM EDT POC , URINE DIAGNOSTIC STAT 07/04/2025 12:47 PM EDT PROTHROMBIN TIME WITH INR STAT 07/04/2025 12:46 PM EDT CBC WITH AUTO DIFFERENTIAL STAT 07/04/2025 12:46 PM EDT TYPE AND SCREEN STAT 07/04/2025 12:46 PM EDT BASIC METABOLIC PANEL STAT 07/04/2025 12:46 PM EDT CBC AND DIFFERENTIAL STAT 07/04/2025 12:46 PM EDT BURTON SCREENING DIGITAL Routine 04/30/2023 5:34 PM EDT Encounter for screening mammogram for malignant neoplasm of breast from Last 3 Months or Most Recently Relevant to Health Maintenance Results * ECG-Annotated (07/05/2025) us Provider Onbase ECG ORDERABLES Final Result * RHYTHM ECG, REPORT (07/04/2025 4:48 PM EDT) Narrative Cam Saleem MD - 07/04/2025 4:48 PM EDT Cam Saleem MD 07/05/2025 3:43 PM ECG Rhythm Interpretation and Report Date/Time: 07/04/2025 4:48 PM Performed by: Cam Saleem MD Authorized by: Cam Saleem MD ECG interpreted by ED Physician in the absence of a hogshead packer: yes Interpretation: Interpretation: normal Details: Sinus rhythm with ventricular rate of 75 bpm. Normal SC, QRS, QTc, axis. No acute ischemic changes. us Cam Saleem MD ECG ORDERABLES Final Result * Troponin I high sensitivity (07/04/2025 4:16 PM EDT) High Sensitivity Troponin I <3 <=54 ng/L LAB CHEMISTRY METHOD 07/04/2025 5:17 PM EDT [facility] Blood Venous blood specimen / Unknown Venipuncture / Unknown 07/04/2025 4:16 PM EDT 07/04/2025 4:44 PM EDT Narrative [facility] - 07/04/2025 5:17 PM EDT High levels of biotin in samples may falsely decrease hsTroponin values. Use caution when interpreting hsTroponin results in patients taking biotin who exhibit renal impairment (eGFR <60) or in patients taking more than 20 mg/day of biotin. Cam Saleem MD LAB BLOOD ORDERABLES Final Res ult Performing Organization Address City/[facility]/ZIP Co de Phone Number [facility] [address] [place] [address], [place] [phone] * ECG 12 lead (07/04/2025 4:15 PM EDT) Ventricular Rate ECG 75 BPM GEMUSE Atrial Rate 75 BPM GEMUSE P-R Interval 156 ms GEMUSE QRS Duration 96 ms GEMUSE Q-T Interval 404 ms GEMUSE QTc 451 ms GEMUSE P Wave [place] 17 degrees GEMUSE R [place] 18 degrees GEMUSE T [place] 36 degrees GEMUSE ECG Interpretation Normal sinus rhythm Normal ECG When compared with ECG of 04-JUL-2025 16:15, (unconfirmed) No significant change was found Confirmed by RADAMES PECK ([id number]) on 07/04/2025 6:25:11 PM GEMUSE 07/04/2025 4:15 PM EDT 07/04/2025 6:25 PM EDT Cam Saleem MD ECG ORDERABLES Final Result Performing Organization Address [facility] Co de Phone Number GEMUSE * US Pelvis Non OB Complete w Transvaginal (07/04/2025 3:02 PM EDT) Anatomical Region Laterality Modality Body, Pelvis Ultrasound 07/04/2025 3:06 PM EDT Impressions 07/04/2025 3:09 PM EDT Impression: 1. Mildly enlarged, myomatous uterus. 2. 4 mm endometrial thickness, within the range of normal. 3. Normal right ovary. 4. Left ovary not identified. Telerad MARTI ([id number]) -------- FINAL REPORT -------- Dictated By: Leti Tolliver Dictated Date: 07/04/2025 15:06 ET Assigned Physician: Leti Tolliver Reviewed and Electronically Signed By: Leti Tolliver Signed Date: 07/04/2025 15:09 ET Workstation ID: [id number] Transcribed By: Self Edit Transcribed Date: 07/04/2025 15:06 ET Narrative 07/04/2025 3:09 PM EDT History: 50-year-old multiparous female, LMP 06/25/25, with heavy vaginal bleeding for 9 days. Tubal ligation 21 years ago. Comparison: No comparison imaging at this institution. Findings: Transvesical imaging of the pelvis is supplemented with transvaginal imaging for better detail of the uterus and adnexa. The uterus is mildly enlarged, measuring 9.2 cm in length by 5.1 cm in depth by 7.6 cm in width. The endometrial echo complex measures 4 mm in thickness double layer. The myometrium is heterogeneous, with at least 2 round, solid masses identified, one posteriorly measuring 2.1 x 2.2 x 2.5 cm and another anteriorly measuring 1.8 x 1.9 x 1.7 cm, suggesting leiomyomas. Nabothian cysts are noted in the cervix. There is no free fluid in the cul-de-sac. The right ovary measures 3.6 x 1.6 x 1.4 cm, normal in appearance, with normal vascular flow by Doppler analysis. The left ovary is not seen. There are graph no adnexal masses are identified. Procedure Note Leti Tolliver MD - 07/04/2025 History: 50-year-old multiparous female, LMP 06/25/25, with heavy vaginalbleeding for 9 days. Tubal ligation 21 years ago. Comparison: No comparison imaging at this institution. Findings: Transvesical imaging of the pelvis is supplemented with transvaginalimaging for better detail of the uterus and adnexa. The uterus is mildly enlarged, measuring 9.2 cm in length by 5.1 cm indepth by 7.6 cm in width. The endometrial echo complex measures 4 mm inthickness double layer. The myometrium is heterogeneous, with at least 2round, solid masses identified, one posteriorly measuring 2.1 x 2.2 x 2.5cm and another anteriorly measuring 1.8 x 1.9 x 1.7 cm, suggestingleiomyomas. Nabothian cysts are noted in the cervix. There is no free fluid in the cul-de-sac. The right ovary measures 3.6 x 1.6 x 1.4 cm, normal in appearance, withnormal vascular flow by Doppler analysis. The left ovary is not seen.There are graph no adnexal masses are identified. IMPRESSION: Impression: 1. Mildly enlarged, myomatous uterus. 2. 4 mm endometrial thickness, within the range of normal. 3. Normal right ovary. 4. Left ovary not identified. Telelester KIDD ([id number]) -------- FINAL REPORT -------- Dictated By: Leti Tolliver Dictated Date: 07/04/2025 15:06 ET Assigned Physician: Leti Tolliver Reviewed and Electronically Signed By: Leti Tolliver Signed Date: 07/04/2025 15:09 ET Workstation ID: [id number] Transcribed By: Self Edit Transcribed Date: 07/04/2025 15:06 ET Cam Saleem MD IMG US PROCEDURES Final Result * POC , urine manually resulted (07/04/2025 12:47 PM EDT) HCG, Ur POC Negative Negative POC hCG Int QC Pass? Yes Yes Urine Urine specimen obtained by clean catch procedure / Unknown 07/04/2025 12:47 PM EDT Annalee KIDD POINT OF CARE TEST ENTER/EDIT ORDERABLES Final Result * (ABNORMAL) CBC auto differential (07/04/2025 12:46 PM EDT) WBC 6.4 4.8 - 10.8 K/[facility] HEMETOLOGY METHOD 07/04/2025 1:46 PM EDT [facility] RBC 3.90 3.80 - 4.80 M/[facility] LAB HEMETOLOGY METHOD 07/04/2025 1:46 PM EDT [facility] Hemoglobin 11.4(L) 11.5 - 16.0 g/dL LAB HEMETOLOGY METHOD 07/04/2025 1:[address] [facility] Hematocrit 35.9 35.0 - 47.0 % LAB HEMETOLOGY METHOD 07/04/2025 1:[address] [facility] MCV 91.6 79.0 - 98.0 FL LAB HEMETOLOGY METHOD 07/04/2025 1:[address] [facility] MCH 29.1 27.0 - 32.0 pcg LAB HEMETOLOGY METHOD 07/04/2025 1:[address] [facility] MCHC 31.8(L) 32.0 - 37.0 g/dL LAB HEMETOLOGY METHOD 07/04/2025 1:[address] [facility] RDW 13.2 11.0 - 15.0 % LAB HEMETOLOGY METHOD 07/04/2025 1:[address] [facility] Platelets 266 130 - 400 K/mcL LAB HEMETOLOGY METHOD 07/04/2025 1:[address] [facility] MPV 11.0 7.0 - 11.0 FL LAB HEMETOLOGY METHOD 07/04/2025 1:[address] [facility] NRBC 0.0 <1.0 % LAB HEMETOLOGY METHOD 07/04/2025 1:[address] [facility] NRBC Absolute 0.00 <0.10 K/mcL LAB HEMETOLOGY METHOD 07/04/2025 1:[address] [facility] Neutrophils Relative 54.4 % LAB HEMETOLOGY METHOD 07/04/2025 1:[address] [facility] Lymphocytes Relative 34.3 % LAB HEMETOLOGY METHOD 07/04/2025 1:[address] [facility] Monocytes Relative 8.1 % LAB HEMETOLOGY METHOD 07/04/2025 1:46 PM EDT [facility] Eosinophils Relative 2.3 % LAB HEMETOLOGY METHOD 07/04/2025 1:46 PM EDT [facility] Basophils Relative 0.6 % LAB HEMETOLOGY METHOD 07/04/2025 1:46 PM EDT [facility] Immature Granulocytes Relative 0.3 % LAB HEMETOLOGY METHOD 07/04/2025 1:46 PM EDT [facility] Neutrophils Absolute 3.48 1.50 - 7.00 K/mcL LAB HEMETOLOGY METHOD 07/04/2025 1:46 PM EDT [facility] Lymphocytes Absolute 2.20 1.00 - 5.00 K/mcL LAB HEMETOLOGY METHOD 07/04/2025 1:46 PM EDT [facility] Monocytes Absolute 0.52 0.20 - 1.00 K/mcL LAB HEMETOLOGY METHOD 07/04/2025 1:46 PM EDT [facility] Eosinophils Absolute 0.15 0.00 - 0.50 K/mcL LAB HEMETOLOGY METHOD 07/04/2025 1:46 PM EDT [facility] Basophils Absolute 0.04 0.00 - 0.20 K/mcL LAB HEMETOLOGY METHOD 07/04/2025 1:46 PM EDT [facility] Immature Granulocytes Absolute 0.02 0.00 - 0.03 K/mcL LAB HEMETOLOGY METHOD 07/04/2025 1:46 PM EDT [facility] Blood Venous blood specimen / Unknown Venipuncture / Unknown 07/04/2025 12:46 PM EDT 07/04/2025 1:40 PM EDT us Annalee KIDD LAB BLOOD ORDERABLES Final Re sult [facility] [address] [place] [address], [place] [phone] * Protime-INR (07/04/2025 12:46 PM EDT) [facility] Protime 12.2 10.6 - 13.9 sec LAB COAGULATION METHOD 07/04/2025 1:52 PM EDT [facility] INR 1.0 LAB COAGULATION METHOD 07/04/2025 1:52 PM EDT [facility] Blood Venous blood specimen / Unknown Venipuncture / Unknown 07/04/2025 12:46 PM EDT 07/04/2025 1:40 PM EDT Cam Saleem MD LAB BLOOD ORDERABLES Final Res ult Performing Organization Address [facility]/ZIP Co de Phone Number [facility] [address] [place] [address], * Type and screen (07/04/2025 12:46 PM EDT) [facility] ABO Group O 07/04/2025 2:47 PM EDT [facility] Rh Type Positive 07/04/2025 2:47 PM EDT [facility] Antibody Screen Negative 07/04/2025 2:47 PM EDT [facility] Blood Venous blood specimen / Unknown Venipuncture / Unknown 07/04/2025 12:46 PM EDT 07/04/2025 1:40 PM EDT Annalee KIDD LAB BLOOD BANK TEST ORDERABLE S Final Result Performing Organization Address City/[facility]/ZIP Co de Phone Number [facility] [address] [place] [address], [place] [phone] * (ABNORMAL) Basic metabolic panel (07/04/2025 12:46 PM EDT) [facility] Sodium 136 133 - 145 mmol/L LAB CHEMISTRY METHOD 07/04/2025 2:[address] [facility] Potassium 4.1 3.5 - 5.5 mmol/L LAB CHEMISTRY METHOD 07/04/2025 2:[address] [facility] Chloride 106 96 - 110 mmol/L LAB CHEMISTRY METHOD 07/04/2025 2:[address] [facility] CO2 24 21 - 32 mmol/L LAB CHEMISTRY METHOD 07/04/2025 2:[address] [facility] Anion Gap 6 3 - 11 LAB CHEMISTRY METHOD 07/04/2025 2:[address] [facility] Glucose 90 70 - 100 mg/dL LAB CHEMISTRY METHOD 07/04/2025 2:[address] [facility] BUN 8 5 - 25 mg/dL LAB CHEMISTRY METHOD 07/04/2025 2:[address] [facility] Creatinine 0.76 0.50 - 1.10 mg/dL LAB CHEMISTRY METHOD 07/04/2025 2:[address] [facility] eGFR 97 >=60 mL/min/1. 73m2 LAB CHEMISTRY METHOD 07/04/2025 2:[address] [facility] Comment:Calculation based on the Chronic Kidney Disease Epidemiology Collaboration (CKD-EPI) equation refit without adjustment for race. BUN/Creatinine Ratio 10.5 LAB CHEMISTRY METHOD 07/04/2025 2:[address] [facility] Calcium 8.4(L) 8.5 - 10.5 mg/dL LAB CHEMISTRY METHOD 07/04/2025 2:[address] [facility] Blood Venous blood specimen / Unknown Venipuncture / Unknown 07/04/2025 12:46 PM EDT 07/04/2025 1:40 PM EDT us Annalee KIDD LAB BLOOD ORDERABLES Final Re sult [facility] [address] [place] [address], * BURTON SCREENING DIGITAL (04/30/2023 5:34 PM EDT) Anatomical Region Laterality Modality Mammography 04/30/2023 2:22 PM EDT Narrative 04/30/2023 5:34 PM EDT [facility] Diagnostic Imaging Department [address] [place] [address] Patient: ALDO CHASE Melanie /Age/Sex: 1975 - 47 - F Unit#: [id number] Location/Status: SPDIMAM/REG CLI Mnemonic[facility] Physician: NICOLE MARTIN APRN [facility] Screening Digital - 04/30/23 - [id number] Report Status:Signed EXAM: [facility] Screening Digital EXAM DATE AND TIME: 04/30/2023 2:54 PM HISTORY: Screening. Baseline exam. Patient states multiple cysts removed from both breasts between ages 16 and 20. Technologist notes also indicate patient describes right axillary lump midway through the exam, present for a couple of years. COMPARISON: No comparison imaging. TECHNIQUE: CC and MLO views of both breasts were obtained using full field digital mammography. Bilateral digital breast tomosynthesis was performed in the MLO projection. Computer aided detection with [employer] 7.2-H and [employer] 3D 3.1 was employed. TISSUE DENSITY: b. There are scattered areas of fibroglandular density. FINDINGS: A 12 mm circumscribed round mass is present in the posterior upper outer right breast, approximately 10:00, 12 cm from the nipple, without associated microcalcifications. Targeted ultrasound is recommended. No grouped microcalcifications or areas of architectural distortion are seen. Few benign rim calcifications are noted. Minimal vascular calcification is seen. The skin is unremarkable. IMPRESSION: 1. 12 mm right breast mass, for which targeted ultrasound is recommended. The patient will be called back. 2. Patient describes right axillary lump during the course of the exam. This area can be further assessed when the patient returns. 3. No mammographic evidence of malignancy is seen in the left breast. BI-RADS: Category 0: Incomplete - Need Additional Imaging Evaluation RECOMMENDATION(S): 1: Ultrasound follow-up RIGHT [id number], [id number], [id number] Dictating Physician: LETI TOLLIVER MD Electronically Signed by: LETI TOLLIVER MD Dic Date/Time: 04/30/231731 Sign date/Time: 04/30/231733 Procedure Note Leti Tolliver MD - 12/24/2023 [facility] Diagnostic Imaging Department [address] [place] [id number] Patient: ALDO CHASE N /Age/Sex: 1975 - 47 - F Unit#: [id number] Location/Status: SPDIMAM/REG CLI Mnemonic/Ordering Site: [facility] Ordering Physician: NICOLE MARTIN APRN [facility] Screening Digital - 04/30/23 - [id number] Report Status:Signed EXAM: [facility] Screening Digital EXAM DATE AND TIME: 04/30/2023 2:54 PM HISTORY: Screening. Baseline exam. Patient states multiple cysts removedfrom both breasts between ages 16 and 20. Technologist notes also indicatepatient describes right axillary lump midway through the exam, present for acouple of years. COMPARISON: No comparison imaging. TECHNIQUE: CC and MLO views of both breasts were obtained using fullfield digital mammography. Bilateral digital breast tomosynthesis was performedin the MLO projection. Computer aided detection with [employer] 7.2-H and[employer] 3D 3.1 was employed. TISSUE DENSITY: b. There are scattered areas of fibroglandular density. FINDINGS: A 12 mm circumscribed round mass is present in the posterior upper outerright breast, approximately 10:00, 12 cm from the nipple, without associated microcalcifications. Targeted ultrasound is recommended. No grouped microcalcifications or areas of architectural distortion areseen. Few benign rim calcifications are noted. Minimal vascular calcification isseen. The skin is unremarkable. IMPRESSION: 1. 12 mm right breast mass, for which targeted ultrasound is recommended.The patient will be called back. 2. Patient describes right axillary lump during the course of the exam.This area can be further assessed when the patient returns. 3. No mammographic evidence of malignancy is seen in the left breast. BI-RADS: Category 0: Incomplete - Need Additional Imaging Evaluation RECOMMENDATION(S): 1: Ultrasound follow-up RIGHT [id number], [id number], [id number] Dictating Physician: LETI TOLLIVER MD Electronically Signed by: LETI TOLLIVER MD Dic Date/Time: 04/30/23 173 Sign date/Time: 04/30/23 173 Nicole Martin NP IMG BI PROCEDURES Final Re sult from Last 3 Months or Most Recently Relevant to Health Maintenance Additional Health Concerns Active Problems Noted Date Diagnosed Date Autogenerated Problem 08/18/2025 Insurance [facility] Care Teams Community Administrator Relationship Specialty Start Date End Date Physician, Pcp Unknown PCP - General 07/04/25
== END 2025-08-18 14:12 | disposition home or self-care (01) ==
LOC: HO.HMCSH 13:19
PROVIDERS: PCP Physician Assistant Medical; Visit Provider Physician Assistant Medical
DX: Z00.00 Encounter for general adult medical examination without abnormal findings (principal); R53.83 Other fatigue; R63.5 Abnormal weight gain; B00.9 Herpesviral infection, unspecified; K13.0 Diseases of lips; N95.1 Menopausal and female climacteric states; Z12.11 Encounter for screening for malignant neoplasm of colon; Z23 Encounter for immunization